=== PATIENT | female | born 1970 | race Caucasian/White ===

== ENCOUNTER 2022-12-14 21:52 | Emergency (ER) | payer OTHER ==
[2022-12-14 22:07] VITALS: BP 104/63; PULSE 65; RESP 18; TEMP 97; BMI 27.4
[2022-12-15 01:52] LABS: BASO % 0.6 % (0-2.0); EOS % 5.2 % (0-4.5); HEMATOCRIT 37.4 % (32.4-45.2); HEMOGLOBIN 12.8 GM/dL (10.7-15.3); LYMPH % 32.4 % (8-40); MCH 28.9 pg (25.7-33.7); MCHC 34.1 g/dl (32.0-36.0); MEAN CELL VOLUME 84.8 fl (80-96); MEAN PLT VOLUME 7.9 fl (7.5-11.1); MONO % 6.9 % (3.8-10.2); NEUT % 54.9 % (42.8-82.8); PLATELET COUNT 297 10^3/uL (134-434); RBC 4.41 M/mm3 (3.60-5.2); RDW 14.2 % (11.6-15.6); WHITE BLOOD COUNT 6.5 K/mm3 (4.0-10.0)
[2022-12-15 02:07] LABS: INR 1.05 (0.83-1.09); PROTHROMBIN TIME (PATIENT) 12.2 SEC (9.7-13.0)
[2022-12-15 02:09] LABS: ACTIVATED PTT 35.3 SECONDS (25.2-36.5)
[2022-12-15 02:19] LABS: ALBUMIN 3.2 g/dl (3.4-5.0); CALCIUM 8.6 mg/dL (8.5-10.1)
[2022-12-15 02:20] LABS: BLOOD UREA NITROGEN 12.7 mg/dL (7-18)
[2022-12-15 02:22] LABS: CREATININE 0.6 mg/dL (0.55-1.3)
[2022-12-15 02:24] LABS: BILIRUBIN,TOTAL 0.2 mg/dL (0.2-1); TOT PROT 6.8 g/dl (6.4-8.2)
== END 2022-12-15 02:35 | disposition left against medical advice (07) ==
LOC: JER 21:52
DX: M54.2 Cervicalgia (principal); R07.9 Chest pain, unspecified; V49.50XA Passenger injured in collision with unspecified motor vehicles in traffic accident, initial encounter
CPT/HCPCS: 36415; 80053; 84484; 85025; 85610; 85730; 86850; 86900; 86901; 93005; 93010; 99284-25